=== PATIENT | female | born 2005 | race Caucasian/White ===

== ENCOUNTER → 2024-09-30 | Outpatient (CLI) | payer OTHER | LOC: LAB 09:00 → LAB SHORT 09:00 | DX: R30.0 Dysuria (principal) | CPT/HCPCS: 87086 ==

== ENCOUNTER → 2024-10-25 | Outpatient (CLI) | payer OTHER | END | disposition home or self-care (01) | LOC: LAB SHORT 18:09 | DX: Z34.83 Encounter for supervision of other normal pregnancy, third trimester (principal); Z3A.36 36 weeks gestation of pregnancy | CPT/HCPCS: 87081; 87150 ==

== ENCOUNTER 2024-11-24 09:49 | Inpatient (IN) | payer OTHER ==
[~2024-11-24] VITALS: Ht 162.6 cm; Wt 89.0 kg
[2024-11-24] VITALS (25 sets, daily range): BP systolic 99–142; BP diastolic 56–104
[2024-11-24] MEDS ORDERED: OXYTOCIN/RINGER'S LACTATE 500 ML IV PRN (10:35)
[2024-11-24] MEDS ORDERED: Misoprostol 200 MCG Tab BC PRN (10:35)
[2024-11-24] MEDS ORDERED: ePHEDrine Sulfate 50 MG/ML 1ML Injection XX PRN (10:35)
[2024-11-24] MEDS ORDERED: Lactated Ringer's 1,000 ML IV SCH ×2 (10:35)
[2024-11-24] MEDS ORDERED: Methylergonovine Maleate 0.2MG / ML 1ML Amp IM PRN (10:35)
[2024-11-24] MEDS ORDERED: Carboprost Tromethamine 250 MCG/ML 1ML Amp IM PRN (10:35)
[2024-11-24] MEDS ORDERED: Ondansetron HCl 2 MG / ML 2ML Vial IV PRN (10:35)
[2024-11-24] MEDS ORDERED: Acetaminophen 500 MG Tab PO PRN (10:35)
[2024-11-24] MEDS ORDERED: FentaNYL Citrate 50 MCG/ML 2 ML Injection IV PRN (10:35)
[2024-11-24] MEDS ORDERED: FentaNYL 2mcg/ml-Bup 0.1% Epd 250 ML EPI PRN (10:35)
[2024-11-24] MEDS ORDERED: Lactated Ringer's 1,000 ML IV PRN (10:35)
[2024-11-24] MEDS ORDERED: Oxytocin 10 Unit / ML Vial IM PRN (10:35)
[2024-11-24] MEDS ORDERED: Misoprostol 200 MCG Tab PR PRN (10:35)
[2024-11-24] MEDS ORDERED: Calcium Carbonate 500 MG Tab Chew PO SCH (10:40)
[2024-11-24] MEDS ORDERED: Tranexamic Acid 100 ML IV SCH (10:45)
[2024-11-24 11:02] LABS: BASOPHILS ABSOLUTE AUTO 0.03 K/mm3 (0.00-0.23); BASOPHILS PERCENT AUTO 0 % (0-2); EOSINOPHILS ABSOLUTE AUTO 0.05 K/mm3 (0.00-0.68); EOSINOPHILS PERCENT AUTO 0 % (0-6); Hematocrit 34.7 % (33.0-51.0); IMMATURE GRAN ABSOLUTE AUTO 0.05 K/mm3 (0.00-0.10); IMMATURE GRAN PERCENT AUTO 0 % (0-1); LYMPHOCYTES PERCENT AUTO 15 % (21-46); MONOCYTES ABSOLUTE AUTO 0.81 K/mm3 (0.16-1.47); MONOCYTES PERCENT AUTO 6 % (4-13); Mean Corpuscular HGB 27.8 pg (26.0-34.0); Mean Corpuscular HGB Conc 34.6 g/dL (31.5-36.5); Mean Corpuscular Volume 80 fL (80-100); Mean Platelet Volume 10.9 fL (9.1-12.4); NEUTROPHILS ABSOLUTE AUTO 9.79 K/mm3 (1.96-9.15); NEUTROPHILS PERCENT AUTO 78 % (41-73); Platelet Count 188 K/mm3 (150-400); RDW Coefficient Variation 12.9 % (11.7-14.2); RDW Standard Deviation 36.9 fL (35.1-46.3); Red Blood Cell Count 4.32 M/mm3 (3.80-5.20); White Blood Cell Count 12.63 K/mm3 (4.00-11.30)
[2024-11-24] MEDS ORDERED: Prozac40 MG PO (11:20)
[2024-11-24] MEDS ORDERED: PRENATAL TABLE1 EAC2 PO (11:20)
[2024-11-24] MEDS ORDERED: HYDPAM100 PO (11:20)
[2024-11-24] MEDS ORDERED: Calcium Carbonate 500 MG Tab Chew PO PRN (14:00)
[2024-11-24] MEDS ORDERED: Methylergonovine Maleate 0.2MG / ML 1ML Amp XX ONE (21:29)
[2024-11-25] VITALS (15 sets, daily range): BP systolic 111–136; BP diastolic 65–90
[2024-11-25] MEDS ORDERED: OXYTOCIN/RINGER'S LACTATE 500 ML IV SCH (02:45)
[2024-11-25] MEDS ORDERED: Lactated Ringer's 1,000 ML IV SCH ×2 (02:45→13:55)
[2024-11-25] MEDS ORDERED: Misoprostol 200 MCG Tab PR PRN (13:45)
[2024-11-25] MEDS ORDERED: Misoprostol 200 MCG Tab BC PRN (13:45)
[2024-11-25] MEDS ORDERED: Benzocaine Topical Anesthetic Spray 60GM TOP PRN (13:50)
[2024-11-25] MEDS ORDERED: Acetaminophen 325 MG TABLET PO PRN (13:50)
[2024-11-25] MEDS ORDERED: OxyCODONE 5 mg/Acetamin 325 mg TABLET PO PRN (13:50)
[2024-11-25] MEDS ORDERED: Witch Hazel/Glycerin PADS TOP PRN (13:50)
[2024-11-25] MEDS ORDERED: FLU VACC TS2024-25(6MOS UP)/PF 45 MCG/0.5 ML SYRINGE IM SCH (13:50)
[2024-11-25] MEDS ORDERED: Docusate Sodium 100 MG Cap PO PRN (13:50)
[2024-11-25] MEDS ORDERED: Misoprostol 100 MCG Tab PO PRN (13:55)
[2024-11-25] MEDS ORDERED: Ibuprofen 400 MG Tab PO PRN (13:55)
[2024-11-25] MEDS ORDERED: Ketorolac Tromethamine 30mg Vial IV SCH (14:00)
[2024-11-26 00:10] VITALS: BP 118/76
[2024-11-26 04:37] VITALS: BP 110/77
[2024-11-26 06:59] LABS: BASOPHILS ABSOLUTE AUTO 0.04 K/mm3 (0.00-0.23); BASOPHILS PERCENT AUTO 0 % (0-2); EOSINOPHILS ABSOLUTE AUTO 0.11 K/mm3 (0.00-0.68); EOSINOPHILS PERCENT AUTO 1 % (0-6); Hematocrit 30.8 % (33.0-51.0); Hemoglobin 10.6 g/dL (11.5-16.0); IMMATURE GRAN ABSOLUTE AUTO 0.13 K/mm3 (0.00-0.10); IMMATURE GRAN PERCENT AUTO 1 % (0-1); LYMPHOCYTES ABSOLUTE AUTO 2.46 K/mm3 (0.84-5.20); LYMPHOCYTES PERCENT AUTO 15 % (21-46); MONOCYTES ABSOLUTE AUTO 1.25 K/mm3 (0.16-1.47); MONOCYTES PERCENT AUTO 8 % (4-13); Mean Corpuscular HGB Conc 34.4 g/dL (31.5-36.5); Mean Corpuscular Volume 81 fL (80-100); Mean Platelet Volume 10.9 fL (9.1-12.4); NEUTROPHILS ABSOLUTE AUTO 12.33 K/mm3 (1.96-9.15); NEUTROPHILS PERCENT AUTO 76 % (41-73); Platelet Count 181 K/mm3 (150-400); RDW Coefficient Variation 13.1 % (11.7-14.2); RDW Standard Deviation 37.7 fL (35.1-46.3); Red Blood Cell Count 3.79 M/mm3 (3.80-5.20); White Blood Cell Count 16.32 K/mm3 (4.00-11.30)
[2024-11-26 08:24] VITALS: BP 113/74
[2024-11-26] MEDS ORDERED: Prenatal Vit/FE Fumarate/FA 1 Tab PO SCH (09:00)
[2024-11-26 12:00] VITALS: BP 126/79
[2024-11-26 17:23] VITALS: BP 112/73
== END 2024-11-26 19:30 | disposition home or self-care (01) | DRG 807 ==
LOC: OBS 09:49 → BC 09:54 → OBS 10:27 → BC 10:28
PROVIDERS: ADMIT Family Medicine
PROC: 10E0XZZ Delivery of Products of Conception, External Approach (ICD-10-PCS; principal; 2024-11-25)
PROC: 0HQ9XZZ Repair Perineum Skin, External Approach (ICD-10-PCS; 2024-11-25)
DX: O48.0 Post-term pregnancy (principal); Z37.0 Single live birth; Z3A.40 40 weeks gestation of pregnancy; O70.0 First degree perineal laceration during delivery
CPT/HCPCS: 36415; 51702; 85025; 86850; 86900; 86901; A9270; J1885; J2210; J2590; J3010; J7120

== ENCOUNTER → 2024-12-09 | Outpatient (CLI) | payer OTHER ==
[~2024-12-09] MED LIST: HYDPAM100 PO; PRENATAL TABLE1 EAC2 PO; Prozac40 MG PO
== END ==
LOC: LAB 17:01 → LAB SHORT 17:01
DX: R30.0 Dysuria (principal)
CPT/HCPCS: 87086